=== PATIENT | female | born 2000 | race Caucasian/White ===

== ENCOUNTER 2023-04-09 09:07 | Inpatient (IN) | payer OTHER ==
[2023-04-09] MEDS ORDERED: ALBUTEROL SO4 2.5/IPRATROPIUM 0.5 INH SOL 3 ML VIAL.NEB. NEB ONE ×2 (09:10→16:03)
[2023-04-09] MEDS: methylPREDNISolone NA SUCC 125 MG/2 ML VIAL IVPB ONE ×2 (09:34→09:57)
[2023-04-09 09:51] LABS: VENOUS PCO2 45.8 mmHg (38-52); VENOUS PH 7.353 (7.310-7.410)
[2023-04-09 09:57] LABS: BASO % 0.6 % (0-2.0); HEMATOCRIT 42.8 % (32.4-45.2); HEMOGLOBIN 14.5 GM/dL (10.7-15.3); LYMPH % 17.6 % (8-40); MCH 27.7 pg (25.7-33.7); MCHC 33.9 g/dl (32.0-36.0); MEAN CELL VOLUME 81.9 fl (80-96); MEAN PLT VOLUME 7.1 fl (7.5-11.1); MONO % 5.9 % (3.8-10.2); NEUT % 69.9 % (42.8-82.8); PLATELET COUNT 315 10^3/uL (134-434); RBC 5.23 M/mm3 (3.60-5.2); RDW 14.3 % (11.6-15.6); WHITE BLOOD COUNT 17.5 K/mm3 (4.0-10.0)
[2023-04-09 10:03] LABS: INR 0.99 (0.83-1.09); PROTHROMBIN TIME (PATIENT) 11.5 SEC (9.7-13.0)
[2023-04-09] MEDS ORDERED: ALBUTEROL SULFATE 0.021% (0.63 MG/3 ML) VIAL.NEB NEB ONE (10:04)
[2023-04-09] MEDS ORDERED: MAGNESIUM SULF 50% (8.12 MEQ/2 ML-1 GM VIAL) IVPB ONE (10:04)
[2023-04-09 10:06] LABS: ACTIVATED PTT 28.8 SECONDS (25.2-36.5)
[2023-04-09] MEDS ORDERED: MAGNESIUM SULFATE IN WATER 2 GM/50 ML IVPB IVPB ONE (10:08)
[2023-04-09] MEDS ORDERED: ALBUTEROL SO4 0.083% IH SOL 2.5 MG/3 ML VIAL.NEB. NEB ONE ×3 (10:08→18:13)
[2023-04-09 10:15] LABS: POTASSIUM 3.6 mmol/L (3.5-5.1)
[2023-04-09 10:17] LABS: CALCIUM 9.1 mg/dL (8.5-10.1)
[2023-04-09 10:18] LABS: ALBUMIN 4.2 g/dl (3.4-5.0); BLOOD UREA NITROGEN 8.6 mg/dL (7-18); MAGNESIUM 2.2 mg/dL (1.8-2.4)
[2023-04-09 10:21] LABS: CREATININE 0.7 mg/dL (0.55-1.3)
[2023-04-09 10:23] LABS: BILIRUBIN,TOTAL 0.3 mg/dL (0.2-1)
[2023-04-09] MEDS ORDERED: ACETAMINOPHEN 500 MG TABLET (FP) PO ONE (13:29)
[2023-04-09] MEDS ORDERED: ACETAMINOPHEN 325 MG TABLET (FP) ONE (13:37)
[2023-04-09] MEDS ORDERED: ALBUTEROL SO4 0.083% IH SOL 2.5 MG/3 ML VIAL.NEB. NEB PRN (15:16)
[2023-04-09] MEDS: ALBUTEROL SO4 2.5/IPRATROPIUM 0.5 INH SOL 3 ML VIAL.NEB. NEB SCH ×2 (16:05→20:40)
[2023-04-09] MEDS ORDERED: methylPREDNISolone NA SUCC 40 MG/1 ML VIAL ONE (17:13)
[2023-04-09] MEDS: methylPREDNISolone NA SUCC 40 MG/1 ML VIAL IVPUSH SCH (17:14)
[2023-04-09] MEDS ORDERED: DESVENLAFAXINE SUCCINATE 25 MG PO SCH (20:45)
[2023-04-09 20:54] VITALS: BMI 44.1
[2023-04-09] MEDS ORDERED: [UNRECOGNIZED DRUG - OTHER] PO SCH (22:26)
[2023-04-09] MEDS ORDERED: DESVENLAFAXINE SUCCINATE 50 MG PO SCH (22:26)
[2023-04-09] MEDS: [UNRECOGNIZED DRUG - OTHER] PO SCH (22:55)
[2023-04-09] MEDS: DESVENLAFAXINE SUCCINATE 50 MG PO SCH (22:55)
[2023-04-10] MEDS: ALBUTEROL SO4 2.5/IPRATROPIUM 0.5 INH SOL 3 ML VIAL.NEB. NEB SCH ×6 (00:10→20:00)
[2023-04-10] MEDS: methylPREDNISolone NA SUCC 40 MG/1 ML VIAL IVPUSH SCH ×3 (01:30→17:45)
[2023-04-10] MEDS ORDERED: guaiFENesin 200 MG/10 ML 10 ML UNIT-DOSE CUPS PO ONE (06:32)
[2023-04-10 08:09] LABS: BASO % 0.1 % (0-2.0); EOS % 0.1 % (0-4.5); HEMATOCRIT 41.8 % (32.4-45.2); HEMOGLOBIN 13.8 GM/dL (10.7-15.3); LYMPH % 7.1 % (8-40); MCH 28.1 pg (25.7-33.7); MCHC 33.1 g/dl (32.0-36.0); MEAN CELL VOLUME 84.9 fl (80-96); MEAN PLT VOLUME 7.9 fl (7.5-11.1); MONO % 4.2 % (3.8-10.2); NEUT % 88.5 % (42.8-82.8); PLATELET COUNT 381 10^3/uL (134-434); RBC 4.93 M/mm3 (3.60-5.2); RDW 14.3 % (11.6-15.6); WHITE BLOOD COUNT 19.2 K/mm3 (4.0-10.0)
[2023-04-10 08:36] LABS: POTASSIUM 4.7 mmol/L (3.5-5.1)
[2023-04-10 08:38] LABS: CALCIUM 9.9 mg/dL (8.5-10.1)
[2023-04-10 08:39] LABS: BLOOD UREA NITROGEN 12.5 mg/dL (7-18)
[2023-04-10 08:41] LABS: CREATININE 0.7 mg/dL (0.55-1.3)
[2023-04-10] MEDS: [UNRECOGNIZED DRUG - OTHER] PO SCH (09:45)
[2023-04-10] MEDS: DESVENLAFAXINE SUCCINATE 50 MG PO SCH (09:45)
[2023-04-10] MEDS: ENOXAPARIN NA (PORCINE) 40 MG/0.4 ML DISP.SYRIN SQ SCH (15:06)
[2023-04-10] MEDS: BENZOCAINE/MENTH/CETYLPYRD CL 1 EACH LOZENGE MM PRN (15:09)
[2023-04-11] MEDS: ALBUTEROL SO4 2.5/IPRATROPIUM 0.5 INH SOL 3 ML VIAL.NEB. NEB SCH ×7 (00:05→23:30)
[2023-04-11] MEDS: guaiFENesin 200 MG/10 ML 10 ML UNIT-DOSE CUPS PO PRN ×2 (01:30→22:08)
[2023-04-11] MEDS: BENZOCAINE/MENTH/CETYLPYRD CL 1 EACH LOZENGE MM PRN (01:30)
[2023-04-11] MEDS: methylPREDNISolone NA SUCC 40 MG/1 ML VIAL IVPUSH SCH ×3 (03:09→17:36)
[2023-04-11] MEDS: ENOXAPARIN NA (PORCINE) 40 MG/0.4 ML DISP.SYRIN SQ SCH (11:00)
[2023-04-11] MEDS: DESVENLAFAXINE SUCCINATE 50 MG PO SCH (11:01)
[2023-04-11] MEDS: [UNRECOGNIZED DRUG - OTHER] PO SCH (11:01)
[2023-04-12 00:30] VITALS: RESP 20
[2023-04-12] MEDS: methylPREDNISolone NA SUCC 40 MG/1 ML VIAL IVPUSH SCH ×2 (03:31→09:51)
[2023-04-12] MEDS: ALBUTEROL SO4 2.5/IPRATROPIUM 0.5 INH SOL 3 ML VIAL.NEB. NEB SCH ×4 (04:55→15:53)
[2023-04-12] MEDS: ENOXAPARIN NA (PORCINE) 40 MG/0.4 ML DISP.SYRIN SQ SCH (09:47)
[2023-04-12] MEDS: DESVENLAFAXINE SUCCINATE 50 MG PO SCH (09:52)
[2023-04-12] MEDS: [UNRECOGNIZED DRUG - OTHER] PO SCH (09:52)
[2023-04-12 11:55] VITALS: BP 149/97; PULSE 113; TEMP 97.6
== END 2023-04-12 17:36 | disposition home or self-care (01) | DRG 202 ==
LOC: JER 09:07 → JERBED 12:03 → J4W 18:39 → OBSVTOIN 04-10 10:11
PROVIDERS: ADMIT Internal Medicine; ATTEND Internal Medicine
DX: J45.901 Unspecified asthma with (acute) exacerbation (principal); Z68.41 Body mass index [BMI] 40.0-44.9, adult; F90.9 Attention-deficit hyperactivity disorder, unspecified type; E28.2 Polycystic ovarian syndrome; F41.9 Anxiety disorder, unspecified; R09.02 Hypoxemia; D72.10 Eosinophilia, unspecified; E66.9 Obesity, unspecified
CPT/HCPCS: 0241U-QW; 36415; 71045-TC-FY; 71250-TC; 80048; 80053; 82803; 83735; 84703; 85025; 85610; 85730; 87070; 87205; 93005; 93010; 94010; 94150; 94640; 94761; 99291; G0378